=== PATIENT | female | born 1955 | race Hispanic/Latino ===

== ENCOUNTER → 2018-04-26 | Outpatient (CLI) | payer OTHER ==
[~2018-04-26] VITALS: Ht 162.6 cm; Wt 71.6 kg
[~2018-04-26] MED LIST: AMLO2.5T4 PO; ASPI-555 PO; CALC-866 PO; CALDOLOR 800MG+NS 250ML 250 ML IV SCH; CEFAZOLIN SODIUM 1 GM VIAL IVP SCH; CINN500C PO; ESTR1TAB17 PO; ESTR2TAB PO; FLUT16H NASAL; LACTATED RINGERS 1000ML 1,000 ML IV SCH; LATA7.5D OU; LEVO100 PO; METO100T14 PO; NIAC500T76 PO; P-EP-94 PO; PRAV40TA3 PO; RAMI10CA69 PO; UBID100C45 PO
[2018-04-26 16:35] LABS: BASOPHILS % (AUTO) 0.6 % (0.0-5.0); EOSINOPHILS % (AUTO) 3.1 % (0.0-8.0); HEMATOCRIT 37.9 % (36-48); LYMPHOCYTES % (AUTO) 47.7 % (21.0-51.0); MEAN CORPUSCULAR HEMOGLOBIN 29.1 pg (27.0-33.0); MEAN CORPUSCULAR HGB CONC 33.3 g/dL (32.0-36.0); MEAN CORPUSCULAR VOLUME 87.6 fL (79-99); MONOCYTES % (AUTO) 5.4 % (3.0-13.0); NEUTROPHILS % (AUTO) 43.2 % (40.0-77.0); NUCLEATED RED BLOOD CELLS 0.1 % (0.0-0.19); PLATELET COUNT (AUTO) 300 K/uL (130-400); RED BLOOD CELL COUNT(AUTO) 4.33 MIL/uL (4.00-5.50); RED CELL DISTRIBUTION WIDTH 13.7 % (11.0-15.5); WHITE BLOOD COUNT (AUTO) 7.3 K/uL (4.8-10.8)
[2018-04-26 17:01] VITALS: BP 145/61
== END ==
LOC: DAH 10:00 → EDSTATUS 05-05 16:00
PROVIDERS: ATTEND Obstetrics & Gynecology
DX: Z01.818 Encounter for other preprocedural examination (principal); N81.10 Cystocele, unspecified; N81.6 Rectocele; K46.9 Unspecified abdominal hernia without obstruction or gangrene; N39.3 Stress incontinence (female) (male)
CPT/HCPCS: 36415; 85025; 86850; 86900; 86901; 93005

== ENCOUNTER 2018-09-01 05:50 | Observation (INO) | payer OTHER | END 2018-09-02 11:25 | disposition home or self-care (01) | LOC: DAHIP 05:50 → WSH 10:40 ==